=== PATIENT | female | born 2000 | race Caucasian/White ===

== ENCOUNTER 2019-11-12 14:18 | Emergency (ER) | payer OTHER, MEDICAID, SELFPAY ==
[2019-11-12 14:26] VITALS: BP 162/98; PULSE 87; RESP 22; TEMP 36.8; O2SAT 97
--- NOTE | 2019-11-12 15:03 | DI.US.S_ITS ---
PROCEDURE: US PELVIC COMPLETE INDICATIONS: QUESTIONABLE /BLEEDING TECHNIQUE: Real-time scanning was performed of the pelvic organs, with image documentation. Additional endovaginal scanning was necessary due to incomplete visualization of the adnexal and endometrial structures by transabdominal scanning. COMPARISON: [facility], , PELVIC COMPLETE, 02/25/2016, 20:23. FINDINGS: Transabdominal scanning: Limited scanning through the kidneys shows no hydronephrosis. No pathologic free abdominal or pelvic fluid. Endovaginal scanning: Uterus: Uterus is normal in size at 5.7 x 2.5 x 4.7 cm. The endometrium measures 1 mm in combined thickness. Ovaries: Right ovary is normal in size and echotexture measuring 1.7 x 1.0 x 1.0 cm. Left ovary measures 2.9 x 2.6 x 2.3 cm and contains a 2 cm complex cyst. IMPRESSION: 1. No IUP. 2. A 2 cm complex cyst in left ovary, most likely a hemorrhagic ovarian cyst. A short-term followup ultrasound is suggested in 6 weeks. 3. Normal uterus and right ovary. Dictated by: Conchis Spicer M.D. on 11/12/2019 at 17:36 Approved by: Conchis Spicer M.D. on 11/12/2019 at 17:44
[2019-11-12 15:05] LABS: Add Manual Diff / Slide Review NO; Basophils Absolute Auto 0 /uL (0-100); Basophils Percent Auto 0.4 % (0-2); Eosinophils Absolute Auto 200 /uL (0-450); Eosinophils Percent Auto 3.2 % (2-4); Lymphocytes Absolute Auto 1700 /uL (1100-4500); Lymphocytes Percent Auto 25.3 % (25-40); Mean Corpuscular HGB Conc 34.1 % (30-36); Mean Corpuscular Hemoglobin 30.2 PG (26-34); Mean Corpuscular Volume 88.4 fL (80-100); Monocytes Absolute Auto 600 /uL (0-900); Neutrophils Absolute Auto 4400 /uL (1500-7000); Neutrophils Percent Auto 63.1 % (50-75); Platelet Count 169 X10^3/uL (150-400); Red Cell Distribution Width 13.3 % (11.6-14.8); White Blood Cell Count 6.9 X10^3/uL (4.5-11.0)
--- NOTE | 2019-11-12 15:06 | ED_ITS ---
HPI - General Chief complaint: Vaginal Bleeding Stated complaint: Possible , Heavy Bleeding, HX Tubal Preg Time Seen by Provider: 11/12/19 14:51 Source: patient Mode of arrival: Ambulatory History of Present Illness HPI Narrative: CC: Vaginal Bleeding r/o miscarriage. HPI: The patient is a 19-year-old female who was been 1 time before and questionably had a tubal . The patient last menstrual period was October 21. She is trying to get . Yesterday she was spotting and today she developed intense vaginal bleeding. The patient has taken 2 home tests that were lightly and minimally positive. The patient states that she had severe pain and discomfort at the time of her last tubal and she had developed an intense infection with questionable PID. It is unknown whether not the patient had a tubal ovarian abscess. She states that they did not do surgery on her and does not know whether not she was administered methotrexate for her tubal ligation. She currently is on no anticoagulation. She has had no fall no injury. The patient may be . She is currently having no abdominal cramps pain or discomfort just vaginal bleeding. She states that she is not supposed to start her period until November 22. If this is her. It is early. She states that she is normally very regular. She denies a history of diabetes mellitus hypertension asthma congenital heart disease or heart murmur. She admits to smoking cigarettes drinks alcohol but does not use drugs or kenneth chadwick. Related Data Allergies Allergy/AdvReac Type Severity Reaction Status Date / Time cetirizine [From [facility]] Allergy Unknown Unverified 09/07/17 12:24 Review of Systems Review of Systems Narrative: REVIEW OF SYSTEMS: CONSTITUTIONAL: The patient denies any change in weight fever chills or sweats. NEUROLOGICAL: She denies any headache head injury neck pain numbness tingling paresthesias paresis or paresthesias. EENT: She has had no sinus congestion nasal drainage or dysphagia. CARDIO-PULMONARY: She has had no chest pain cough shortness of breath difficulty in breathing. GASTROINTESTINAL: The patient denies any abdominal pain or cramps at this time she has been intensely nauseous but no vomiting no diarrhea. GENITAL URINARY: She denies any urinary symptoms. MUSCULOSKELETAL/ RHEUMATOLOGICAL: No back pain. DERMATOLOGICAL: The patient has multiple tattoos without any bruises or rash Exam Narrative Exam Narrative: PHYSICAL EXAM: CONSTITUTIONAL: Awake, Alert, Oriented, Coherent, Cooperative in NAD. Does not appear toxic or ill. HEAD: AT/NC EENT: PERRL, FROM of eyes, no discharge, no conjunctivitis. NOSE:No epistaxis or nasal drainage MOUTH:Oral mucosa is moist and pink, posterior pharynx is without erythema or exudate. NECK: Supple, no obvious JVD, Trachea is midline without stridor, no palpable LN. SPINE: Palpation of the cervical, Thoracic, Lumbar or Sacral spine reveals no gross deformity or tenderness. No CVA tenderness. THORAX: No deformity, retractions, chest wall tenderness. LUNGS: Clear, symmetrical breath sounds without respiratory distress. HEART: Normal heart tones, regular rhythm and rate without murmur. ABDOMEN: Soft, non-tender, normal bowel sounds without guarding, rebound, rigidity or palpable mass. LYMPHATIC: no palpable lymph nodes or spleen. EXTREMITIES: No edema, deformity, tenderness or cyanosis. SKIN: No rash, bruising, petechiae or purpura. Multiple tattoos over her right arm NEURO: Awake, alert, oriented, conversive, cranial nerves II-XII are symmetrical , moves all 4 extremities and is ambulatory. MENTAL HEALTH: Does not appear anxious or depressed. Initial Vital Signs Initial Vital Signs: Vital Signs Temperature 98.2 F 11/12/19 14:26 Pulse Rate 87 11/12/19 14:26 Respiratory Rate 22 11/12/19 14:26 Blood Pressure 162/98 H 11/12/19 14:26 Pulse Oximetry 97 11/12/19 14:26 Course Course Course Narrative: 1732: The results of the patient's ultrasound of her pelvis remains pending at this time. Her dipstick urine test was negative. Her quantitative beta hCG was less than 2.4. The patient is not . The patient may be having an early menstrual period. The results of her ultrasound remains pending. 1746: Per the infrastructure technician there was no evidence of an intrauterine . The patient will be discharged home. Orders Ordered: ED Orders 11/12/19 14:48 Beta HCG, Quant [HCG Quantitative /Beta subunit] Stat Complete Blood Count AUTO DIFF Stat Comprehensive Metabolic Panel Stat Type and Screen Stat 11/12/19 15:03 US pelvic complete Stat Vital Signs Vital signs: Vital Signs - 8 hr 11/12/19 14:26 Temperature 98.2 F Pulse Rate 87 Respiratory Rate 22 Blood Pressure 162/98 H Pulse Oximetry 97 MDM - OB/Uterine Contractions Lab Data Result diagrams: 11/12/19 14:48 11/12/19 14:48 Labs: Lab Results 11/12/19 11/12/19 11/12/19 Range/Units 14:48 14:48 14:48 WBC 6.9 (4.5-11.0) X10^3/uL RBC 4.30 (4.0-5.2) X10^6/uL Hgb 13.0 (12.0-16.0) g/dL Hct 38.0 (36-46) % MCV 88.4 (80-100) fL MCH 30.2 (26-34) PG MCHC 34.1 (30-36) % RDW 13.3 (11.6-14.8) % Plt Count 169 (150-400) X10^3/uL Neut % (Auto) 63.1 (50-75) % Lymph % (Auto) 25.3 (25-40) % [place] % (Auto) 8.0 (3-14) % Eos % (Auto) 3.2 (2-4) % Baso % (Auto) 0.4 (0-2) % Neut # (Auto) 4400 (1827-0876) /uL Lymph # (Auto) 1700 (4206-6977) /uL [place] # (Auto) 600 (0-900) /uL Eos # (Auto) 200 (0-450) /uL Baso # (Auto) 0 (0-100) /uL Sodium 139 (137-145) mmol/L Potassium 3.5 (3.4-5.1) mmol/L Chloride 103 (98-107) mmol/L Carbon Dioxide 26 (22-32) mmol/L BUN 9 (7-17) mg/dL Creatinine 0.71 (0.52-1.04) mg/dL Estimated GFR > 60.0 (>60) mL/min BUN/Creatinine Ratio 12.7 (6-22) Glucose 91 (70-100) mg/dL Calcium 9.5 (8.4-10.2) mg/dL Total Bilirubin 0.7 (0.2-1.3) mg/dL AST 33 (14-36) IU/L ALT 14 (<35) IU/L Alkaline Phosphatase 64 (38-126) U/L Total Protein 8.0 (6.3-8.2) g/dL Albumin 4.8 (3.5-5.0) g/dL Globulin 3.2 (1.7-4.1) g/dL Albumin/Globulin Ratio 1.5 (1.0-2.8) HCG, Quant mIU/mL Blood Type O Positive Antibody Screen Negative 11/12/19 Range/Units 14:48 WBC (4.5-11.0) X10^3/uL RBC (4.0-5.2) X10^6/uL Hgb (12.0-16.0) g/dL Hct (36-46) % MCV (80-100) fL MCH (26-34) PG MCHC (30-36) % RDW (11.6-14.8) % Plt Count (150-400) X10^3/uL Neut % (Auto) (50-75) % Lymph % (Auto) (25-40) % [place] % (Auto) (3-14) % Eos % (Auto) (2-4) % Baso % (Auto) (0-2) % Neut # (Auto) (8689-9433) /uL Lymph # (Auto) (1335-3715) /uL [place] # (Auto) (0-900) /uL Eos # (Auto) (0-450) /uL Baso # (Auto) (0-100) /uL Sodium (137-145) mmol/L Potassium (3.4-5.1) mmol/L Chloride (98-107) mmol/L Carbon Dioxide (22-32) mmol/L BUN (7-17) mg/dL Creatinine (0.52-1.04) mg/dL Estimated GFR (>60) mL/min BUN/Creatinine Ratio (6-22) Glucose (70-100) mg/dL Calcium (8.4-10.2) mg/dL Total Bilirubin (0.2-1.3) mg/dL AST (14-36) IU/L ALT (<35) IU/L Alkaline Phosphatase (38-126) U/L Total Protein (6.3-8.2) g/dL Albumin (3.5-5.0) g/dL Globulin (1.7-4.1) g/dL Albumin/Globulin Ratio (1.0-2.8) HCG, Quant < 2.4 mIU/mL Blood Type Antibody Screen Point of Care Testing Test Results Negative Urine Dip Bedside Urine Glucose Negative Bedside Urine Bilirubin - Negative Bedside Urine Ketone - Negative Urine Specific [place] 1.010 Bedside Urine Occult Blood +++ Bedside Urine pH 7.0 Bedside Urine Protein - Negative Bedside Urine Urobilinogen - Negative Bedside Urine Nitrite - Negative Bedside Urine Leukocytes - Negative Esterase Discharge Plan Departure Patient Disposition: Home Clinical Impression: Vaginal bleeding Discharge Date/Time: 11/12/19 17:57 Instructions: DI for Vaginal Bleeding, DI for Abnormal Uterine Bleeding Activity Restrictions/Additional Instructions: 1. Follow-up with your primary care physician. 2. For any pain and discomfort you can take Tylenol 500 mg every 4 hours or 1 g every 6 hours. You can also use ibuprofen 3 200 mg tablets every 6 hours as needed for pain and discomfort. Take either the Tylenol or ibuprofen but not both of them together. 3. Your ultrasound reveals that there is no intrauterine or evidence of ectopic. 4. Your test was negative and your beta hCG was also negative for . 5. If you develop worsening pain, worsening bleeding, fever you need to return to the emergency department to be re-evaluated or follow-up with your fish culturist/ primary care physician.
[2019-11-12 15:09] LABS: Alanine Aminotransferase 14 IU/L (<35); Albumin 4.8 g/dL (3.5-5.0); Albumin Globulin Ratio 1.5 (1.0-2.8); Alkaline Phosphatase 64 U/L (38-126); Aspartate Aminotransferase 33 IU/L (14-36); BUN Creatinine Ratio 12.7 (6-22); Bilirubin Total 0.7 mg/dL (0.2-1.3); Blood Urea Nitrogen 9 mg/dL (7-17); Calcium 9.5 mg/dL (8.4-10.2); Carbon Dioxide 26 mmol/L (22-32); Chloride 103 mmol/L (98-107); Estimated Glomerular Filt Rate > 60.0 mL/min (>60); Globulin 3.2 g/dL (1.7-4.1); Glucose 91 mg/dL (70-100); HEMOLYSIS < 15 (0-50); Potassium 3.5 mmol/L (3.4-5.1); Sodium 139 mmol/L (137-145)
[2019-11-12 16:44] LABS: HCG Quantitative /Beta subunit < 2.4 mIU/mL
[2019-11-12 17:56] VITALS: BP 108/55; PULSE 68; RESP 16; O2SAT 97
== END 2019-11-12 17:57 | disposition home or self-care (01) ==
PROVIDERS: Emergency Provider Emergency Medicine; Family Provider Pediatrics
DX: N93.9 Abnormal uterine and vaginal bleeding, unspecified (principal)
CPT/HCPCS: 36415; 76830; 76856; 80053; 81003; 81025; 84702; 85025; 86850; 86900; 86901; 99284

== ENCOUNTER 2021-11-04 14:01 | Emergency (ER) | payer OTHER, MEDICAID, SELFPAY ==
[2021-11-04 14:07] VITALS: BP 131/76; PULSE 75; RESP 18; TEMP 37.5; O2SAT 96
[2021-11-04 14:35] LABS: Add Manual Diff / Slide Review NO; Basophils Absolute Auto 0 /uL (0-100); Basophils Percent Auto 0.1 % (0-2); Eosinophils Absolute Auto 100 /uL (0-450); Eosinophils Percent Auto 0.9 % (2-4); Hematocrit 36.3 % (36-46); Hemoglobin 12.1 g/dL (12.0-16.0); Lymphocytes Absolute Auto 1600 /uL (1100-4500); Mean Corpuscular HGB Conc 33.4 % (30-36); Mean Corpuscular Hemoglobin 28.3 PG (26-34); Mean Corpuscular Volume 84.7 fL (80-100); Monocytes Absolute Auto 1000 /uL (0-900); Monocytes Percent Auto 8.4 % (3-14); Neutrophils Absolute Auto 8900 /uL (1500-7000); Neutrophils Percent Auto 76.6 % (50-75); Platelet Count 186 X10^3/uL (150-400); Red Blood Cell Count 4.28 X10^6/uL (4.0-5.2); Red Cell Distribution Width 13.6 % (11.6-14.8); White Blood Cell Count 11.6 X10^3/uL (4.5-11.0)
[2021-11-04 14:50] LABS: Alanine Aminotransferase 30 IU/L (<35); Albumin 4.7 g/dL (3.5-5.0); Albumin Globulin Ratio 1.4 (1.0-2.8); Alkaline Phosphatase 96 U/L (38-126); Aspartate Aminotransferase 31 IU/L (14-36); Bilirubin Total 1.2 mg/dL (0.2-1.3); Blood Urea Nitrogen 10 mg/dL (7-17); Carbon Dioxide 26 mmol/L (22-32); Chloride 104 mmol/L (98-107); Estimated Glomerular Filt Rate > 60 mL/min (>60); Globulin 3.4 g/dL (1.7-4.1); Glucose 92 mg/dL (70-100); HEMOLYSIS < 15 (0-50); Lipase 70 U/L (23-300); Potassium 3.9 mmol/L (3.4-5.1); Sodium 139 mmol/L (137-145); Total Protein 8.1 g/dL (6.3-8.2)
--- NOTE | 2021-11-04 14:54 | DI.US.S_ITS ---
PROCEDURE: US ABDOMEN LIMITED INDICATIONS: RUQ pain w/nausea, anorexia gallstones/cholecystitis? TECHNIQUE: Real-time focused scanning was performed of the abdomen, with image documentation. COMPARISON: None. FINDINGS: The liver is normal in size and demonstrates no focal lesions. No findings of gallstones or sludge are seen. The gallbladder wall is not thickened, measuring 3 mm or less. No specific pericholecystic fluid is seen. The sonographic Mcghee sign is negative. There is no biliary dilatation, the common bile duct measures 3-4 mm. No significant pancreatic abnormality is seen on these images. IMPRESSION: The gallbladder demonstrates a normal sonographic appearance. No biliary dilatation is seen. Dictated by: Tereso Curtis M.D. on 11/04/2021 at 14:35 Approved by: Tereso Curtis M.D. on 11/04/2021 at 14:36
[2021-11-04 15:16] LABS: Appearance Urine UA CLEAR; Bilirubin Urine UA NEGATIVE (NEGATIVE); Color Urine UA YELLOW; Glucose Urine UA TRACE g/dL (Negative); Ketones Urine UA NEGATIVE (NEGATIVE); Leukocyte Esterase Urine UA NEGATIVE (NEGATIVE); Nitrite Urine UA NEGATIVE (Negative); Occult Blood Urine UA TRACE-INTACT (Negative); Protein Urine UA NEGATIVE (Negative); Urobilinogen Urine UA 0.2 E.U./dL (0.2)
--- NOTE | 2021-11-04 15:16 | ED.ABDPAIN ---
HPI - Abdominal Pain General Chief Complaint: Abdominal Pain Stated Complaint: RIGHT UPPER PAIN NAUSEA BODY ACHES Time Seen by Provider: 11/04/21 14:37 Source: patient Mode of arrival: Ambulatory History of Present Illness HPI narrative: This is a 21-year-old female who is 13 weeks who presents to the emergency department with two weeks of intermittent right upper quadrant pain, poor appetite, nausea, and worsened pain after eating. Patient denies any abdominal surgeries, states that she has had worsened pain after fatty meals and after coffee. She denies any heartburn, endorses soft stools but denies any blood in her urine or her stools, denies dysuria or flank pain, denies any other abdominal pain. Related Data Allergies Allergy/AdvReac Type Severity Reaction Status Date / Time cetirizine [From [facility]] Allergy Unknown Unverified 09/07/17 12:24 Review of Systems Review of Systems Narrative: General: denies fever, chills, malaise, sweats, fatigue Head/Neck: denies headache, neck pain, dizziness, denies a sore throat but states has a scratchy throat Eyes: denies visual changes, eye pain Cardio: denies chest pain, palpitations, edema Respiratory: denies dyspnea, cough, orthopnea GI: Endorses right upper quadrant abdominal pain with nausea, denies any vomiting, or diarrhea, endorses intermittent constipation : denies dysuria, hematuria, urinary retention, frequency or incontinence MSK: denies joint pain, muscle weakness Skin: denies rash, itching, skin lesions or other Neuro: denies numbness, tingling Exam Narrative Exam Narrative: Independently reviewed vitals signs and nursing notes. General: cooperative, comfortable, in no acute distress, well groomed Head: atraumatic, symmetrical facial expressions Neck: supple Eyes: equal round and reactive, EOMI, conjunctiva normal Nose: nares patent, no rhinorrhea Mouth/Throat: moist mucus membranes, posterior pharynx with mild erythema, no tonsillar exudate or white patchy lesions Cardiovascular: regular rate and rhythm, no peripheral edema, warm extremities Respiratory: normal effort, able to speak in complete sentences, no audible wheezing, stridor, or rales. No retractions or tachypnea. GI: abdomen soft, nontender to palpation, nondistended, no masses, no exquisite tenderness with exam, without guarding or rebound. MSK: moves all extremities, neurovascularly intact, no weakness, normal tone Skin: brisk capillary refill, no rash, no erythema Neuro: normal speech and cognition, A&O x3 Psych: mental status is grossly normal, congruent mood, normal affect, pleasant and cooperative Initial Vital Signs Initial Vital Signs: Vital Signs Temperature 99.5 F 11/04/21 14:07 Pulse Rate 75 11/04/21 14:07 Respiratory Rate 18 11/04/21 14:07 Blood Pressure 131/76 11/04/21 14:07 Pulse Oximetry 96 11/04/21 14:07 Oxygen Delivery Method 11/04/21 14:07 Course Orders Ordered: Discontinued Medications Ketorolac Tromethamine (Ketorolac 30 Mg/Ml Vial) 15 mg IV NOW ONE Stop: 11/04/21 15:18 Last Admin: 11/04/21 16:20 Dose: 15 mg Documented By: MARCK Ondansetron HCl (Ondansetron 4 Mg/2 Ml Inj) 4 mg IV NOW ONE Stop: 11/04/21 15:17 Last Admin: 11/04/21 16:19 Dose: 4 mg Documented By: MARCK Vital Signs Vital signs: Vital Signs - 8 hr 11/04/21 14:07 Temperature 99.5 F Pulse Rate 75 Respiratory Rate 18 Blood Pressure 131/76 Pulse Oximetry 96 MDM - Abdominal Pain Lab Data Result diagrams: 11/04/21 14:20 11/04/21 14:20 Labs: Lab Results 11/04/21 11/04/21 11/04/21 Range/Units 14:20 14:20 15:12 WBC 11.6 H (4.5-11.0) X10^3/uL RBC 4.28 (4.0-5.2) X10^6/uL Hgb 12.1 (12.0-16.0) g/dL Hct 36.3 (36-46) % MCV 84.7 (80-100) fL MCH 28.3 (26-34) PG MCHC 33.4 (30-36) % RDW 13.6 (11.6-14.8) % Plt Count 186 (150-400) X10^3/uL Neut % (Auto) 76.6 H (50-75) % Lymph % (Auto) 14.0 L (25-40) % [place] % (Auto) 8.4 (3-14) % Eos % (Auto) 0.9 L (2-4) % Baso % (Auto) 0.1 (0-2) % Neut # (Auto) 8900 H (5013-2902) /uL Lymph # (Auto) 1600 (5285-3544) /uL [place] # (Auto) 1000 H (0-900) /uL Eos # (Auto) 100 (0-450) /uL Baso # (Auto) 0 (0-100) /uL Sodium 139 (137-145) mmol/L Potassium 3.9 (3.4-5.1) mmol/L Chloride 104 (98-107) mmol/L Carbon Dioxide 26 (22-32) mmol/L BUN 10 (7-17) mg/dL Creatinine 0.77 (0.52-1.04) mg/dL Estimated GFR > 60 (>60) mL/min BUN/Creatinine Ratio 13.0 (6-22) Glucose 92 (70-100) mg/dL Calcium 9.0 (8.4-10.2) mg/dL Total Bilirubin 1.2 (0.2-1.3) mg/dL AST 31 (14-36) IU/L ALT 30 (<35) IU/L Alkaline Phosphatase 96 (38-126) U/L Total Protein 8.1 (6.3-8.2) g/dL Albumin 4.7 (3.5-5.0) g/dL Globulin 3.4 (1.7-4.1) g/dL Albumin/Globulin Ratio 1.4 (1.0-2.8) Lipase 70 (23-300) U/L Urine Color Yellow Urine Appearance Clear Urine pH 7.5 (4.5-8.0) Ur Specific [place] 1.010 (1.000-1.035) Urine Protein Negative (Negative) Urine Glucose (UA) Trace H (Negative) g/dL Urine Ketones Negative (NEGATIVE) Urine Occult Blood Trace-intact (Negative) Urine Nitrate Negative (Negative) Urine Bilirubin Negative (NEGATIVE) Urine Urobilinogen 0.2 (0.2) E.U./dL Ur Leukocyte Esterase Negative (NEGATIVE) Urine RBC 1-5/hpf (0-5/HPF) Urine WBC None seen (0-5/HPF) Ur Squamous Epith Cells 5-10 /hpf H (0-5/HPF) Amorphous Sediment 1+ Urine Bacteria None seen (None) Ur Culture Indicated? Cult not indicated Chlamy pneumoniae PCR (Not Detect) Adenovirus (PCR) (Not Detect) B. pertussis DNA (PCR) (Not Detecte) B.parapertussis DNA PCR (Not Detecte) Coronavirus OC43 (PCR) (Not Detect) Coronavirus HKU1 (PCR) (Not Detect) Coronavirus 229E (PCR) (Not Detect) SARS-CoV-2 (PCR) (Not Detecte) Coronavirus NL63 (PCR) (Not Detect) Human Metapneumovir PCR (Not Detect) Influenza Type A (PCR) (Not Detect) Influenza Type B (PCR) (Not Detect) M. pneumoniae (PCR) (Not Detect) Parainfluenza 1 (PCR) (Not Detect) Parainfluenza 2 (PCR) (Not Detect) Parainfluenza 3 (PCR) (Not Detect) Parainfluenza 4 (PCR) (Not Detect) RSV (PCR) (Not Detect) Entero/Rhino (PCR) (Not Detect) 11/04/21 Range/Units 16:10 WBC (4.5-11.0) X10^3/uL RBC (4.0-5.2) X10^6/uL Hgb (12.0-16.0) g/dL Hct (36-46) % MCV (80-100) fL MCH (26-34) PG MCHC (30-36) % RDW (11.6-14.8) % Plt Count (150-400) X10^3/uL Neut % (Auto) (50-75) % Lymph % (Auto) (25-40) % [place] % (Auto) (3-14) % Eos % (Auto) (2-4) % Baso % (Auto) (0-2) % Neut # (Auto) (1544-9468) /uL Lymph # (Auto) (1266-2397) /uL [place] # (Auto) (0-900) /uL Eos # (Auto) (0-450) /uL Baso # (Auto) (0-100) /uL Sodium (137-145) mmol/L Potassium (3.4-5.1) mmol/L Chloride (98-107) mmol/L Carbon Dioxide (22-32) mmol/L BUN (7-17) mg/dL Creatinine (0.52-1.04) mg/dL Estimated GFR (>60) mL/min BUN/Creatinine Ratio (6-22) Glucose (70-100) mg/dL Calcium (8.4-10.2) mg/dL Total Bilirubin (0.2-1.3) mg/dL AST (14-36) IU/L ALT (<35) IU/L Alkaline Phosphatase (38-126) U/L Total Protein (6.3-8.2) g/dL Albumin (3.5-5.0) g/dL Globulin (1.7-4.1) g/dL Albumin/Globulin Ratio (1.0-2.8) Lipase (23-300) U/L Urine Color Urine Appearance Urine pH (4.5-8.0) Ur Specific [place] (1.000-1.035) Urine Protein (Negative) Urine Glucose (UA) (Negative) g/dL Urine Ketones (NEGATIVE) Urine Occult Blood (Negative) Urine Nitrate (Negative) Urine Bilirubin (NEGATIVE) Urine Urobilinogen (0.2) E.U./dL Ur Leukocyte Esterase (NEGATIVE) Urine RBC (0-5/HPF) Urine WBC (0-5/HPF) Ur Squamous Epith Cells (0-5/HPF) Amorphous Sediment Urine Bacteria (None) Ur Culture Indicated? Chlamy pneumoniae PCR Not detected (Not Detect) Adenovirus (PCR) Not detected (Not Detect) B. pertussis DNA (PCR) Not detected (Not Detecte) B.parapertussis DNA PCR Not detected (Not Detecte) Coronavirus OC43 (PCR) Not detected (Not Detect) Coronavirus HKU1 (PCR) Not detected (Not Detect) Coronavirus 229E (PCR) Not detected (Not Detect) SARS-CoV-2 (PCR) Not detected (Not Detecte) Coronavirus NL63 (PCR) Not detected (Not Detect) Human Metapneumovir PCR Not detected (Not Detect) Influenza Type A (PCR) Not detected (Not Detect) Influenza Type B (PCR) Not detected (Not Detect) M. pneumoniae (PCR) Not detected (Not Detect) Parainfluenza 1 (PCR) Not detected (Not Detect) Parainfluenza 2 (PCR) Not detected (Not Detect) Parainfluenza 3 (PCR) Not detected (Not Detect) Parainfluenza 4 (PCR) Not detected (Not Detect) RSV (PCR) Not detected (Not Detect) Entero/Rhino (PCR) Not detected (Not Detect) Point of care testing: Point of Care Testing Test Results Negative Urine Dip Bedside Urine Glucose Negative Bedside Urine Bilirubin - Negative Bedside Urine Ketone - Negative Urine Specific [place] 1.010 Bedside Urine Occult Blood +/- Bedside Urine pH 7.0 Bedside Urine Protein - Negative Bedside Urine Urobilinogen +/- 1mg Bedside Urine Nitrite - Negative Bedside Urine Leukocytes - Negative Esterase Imaging Data CT scan - abdomen/pelvis: Radiologist's Impression: PROCEDURE: US ABDOMEN LIMITED ? INDICATIONS:? RUQ pain w/nausea, anorexia gallstones/cholecystitis? ? TECHNIQUE:? Real-time focused scanning was performed of the abdomen, with image documentation.? ? COMPARISON:? None. ? FINDINGS:? The liver is normal in size and demonstrates no focal lesions. ? No findings of gallstones or sludge are seen.? The gallbladder wall is not thickened, measuring 3 mm or less.? No specific pericholecystic fluid is seen.? The sonographic Mcghee sign is negative. ? There is no biliary dilatation, the common bile duct measures 3-4 mm.? ? No significant pancreatic abnormality is seen on these images.? IMPRESSION:? The gallbladder demonstrates a normal sonographic appearance. No biliary dilatation is seen. ? ? Dictated by: Tereso Curtis M.D. on 11/04/2021 at 14:35 ? ? Approved by: Tereso Curtis M.D. on 11/04/2021 at 14:36 ? [facility] Narrative Medical decision making narrative: This is a 21-year-old female presents to the emergency department with two weeks of intermittent right upper quadrant pain which she states is worse after she eats, especially after fatty meals, accompanied by nausea, denies any other pain. She is 11 , denies any of these pains during her . Today, she was tender on exam but ultrasound of her right upper quadrant shows normal sonographic appearance of the gallbladder, no biliary dilation is seen, no findings of gallstones or sludge without any pericholecystic fluid. The sonographic Mcghee sign was negative, her lab work does not show any elevation in liver enzymes, her lab work is significant for a mildly elevated WBC count at 11.6, no left shift, electrolytes are within normal ranges, UA shows a trace of blood with a trace of glucose however microscopy shows squamous epithelial cells likely contaminant. Respiratory panel is negative for all tested viruses. This was obtained as patient had a mildly irritated throat, states that her voice sounds hoarse and she has a scratchy throat. Denies any sick contacts at home, discussed return precautions for patient, this is not seem to be an acute abdomen, she did not have any significant findings on her workup today. No peritoneal signs on abdominal exam. Patient remains p.o. tolerant. Serial abdominal exam without increase in abdominal pain. Given history and exam, low suspicion for acute abdominal process, such as acute cholecystitis, pancreatitis, perforated viscus, atypical appendicitis, colitis, diverticulitis or torsion. Extensive conversation about ER return precautions and need for close follow-up. Encourage patient to schedule a follow-up appointment with her primary care provider to allow this time to declare itself. Patient understands to return to the emergency department for any worsening of her symptoms. Patient is appropriate and amenable to discharge home. Vital signs are stable on repeat examination is unremarkable. Patient has been informed of results. Patient has been given strict return to ER precautions for any new or worsening symptoms. Patient understands to follow up closely with outpatient providers as instructed. Patient understands plan and agrees to discharge home. All questions and concerns answered at this time. Discharge Plan Departure Patient Disposition: Home Clinical Impression: Viral respiratory illness, Abdominal pain, RUQ Instructions: Acute Abdominal Pain, DI for Viral Upper Respiratory Infection -- Adult Activity Restrictions/Additional Instructions: On ultrasound today, does not appear that you have any problems with her gallbladder, there stones or inflammation of the gallbladder wall. This is great news. Your lab work suggest that you might have the beginnings of bacterial or viral illness. Because your throat is scratchy in your voice is slightly changed, I presume this is respiratory viral illness, and that is probably causing your muscle aches. I will give you a call if it is positive for any of the tested viruses. Please stay hydrated, avoid ibuprofen, try Tylenol as it is easier on her stomach and try to avoid going long periods of time without food as this may worsen your abdominal pain. Please follow-up with your primary care provider if your viral panel does not show anything and if your pain persists. Thank you for trusting us with your care, your urine did not show any infection, the rest of your labs appeared normal. I hope you feel better soon. *What to do: *Please continue to take your regular medications as directed. [ ] New medication prescriptions sent to your pharmacy: [ ] [ ] New medication written as a paper prescription [ x] No new medications given *Please follow up with your primary care provider in 2-3 days, call for an appointment. Let them know you were seen in the Emergency Department and that we asked that you be seen for follow-up. We will electronically transmit a record of today's note if your PCP is in our system *If you do not have a primary care provider please contact [phone] to establish care with one of the [facility] primary care providers. *Return to Emergency Department if you should have any new, worsening or concerning symptoms, such as [fever greater than 101F, chills, worsening pain, persistent vomiting or other bothersome symptoms] Referrals: Lana Crooks FNP-C [Non-Staff] - Visit Report Forms: Patient Portal/API
[2021-11-04 15:34] LABS: pH Urine UA 7.5 (4.5-8.0)
[2021-11-04 15:43] LABS: Amorphous Sediment Urine 1+; RBC Urine 1-5/HPF (0-5/HPF); Squamous Epithelial Cell Urine 5-10 /HPF (0-5/HPF); WBC Urine None Seen (0-5/HPF)
[2021-11-04 15:44] LABS: Bacteria Urine None Seen; Culture Indicated Urine Cult Not Indicated
[2021-11-04] MEDS: ONDANSETRON 4 MG/2 ML INJ IV (16:19)
[2021-11-04] MEDS: KETOROLAC 30 MG/ML VIAL 15 MG IV (16:20)
[2021-11-04 17:17] LABS: Adenovirus Not Detected (Not Detect); B. parapertussis Not Detected (Not Detecte); Bordetella pertussis Not Detected (Not Detecte); Chlamydophila pneumoniae Not Detected (Not Detect); Coronavirus 229E Not Detected (Not Detect); Coronavirus HKU1 Not Detected (Not Detect); Coronavirus NL 63 Not Detected (Not Detect); Coronavirus OC43 Not Detected (Not Detect); Human Metapneumovirus Not Detected (Not Detect); Human Rhinovirus/Enterovirus Not Detected (Not Detect); Influenza A Not Detected (Not Detect); Influenza B Not Detected (Not Detect); Mycoplasma pneumoniae Not Detected (Not Detect); Parainfluenza Virus 1 Not Detected (Not Detect); Parainfluenza Virus 2 Not Detected (Not Detect); Parainfluenza Virus 3 Not Detected (Not Detect); Parainfluenza Virus 4 Not Detected (Not Detect); Respiratory Syncytial Virus Not Detected (Not Detect); SARS- CoV-2 Not Detected (Not Detecte)
== END 2021-11-04 16:37 | disposition home or self-care (01) ==
PROVIDERS: Emergency Medicine; Emergency Provider Nurse Practitioner Critical Care Medicine; Family Provider Pediatrics
DX: J06.9 Acute upper respiratory infection, unspecified (principal); R11.0 Nausea; R10.11 Right upper quadrant pain; Z20.822 Contact with and (suspected) exposure to COVID-19
CPT/HCPCS: 36415; 76705; 80053; 81001; 81003; 81025; 83690; 85025; 87633; 96374; 96375; 99284; J1885; J2405

== ENCOUNTER 2022-04-22 20:01 | Emergency (ER) | payer OTHER, MEDICAID, SELFPAY ==
[2022-04-22 20:10] VITALS: BP 139/86; PULSE 100; RESP 20; TEMP 38; O2SAT 100; BMI 28.0
[2022-04-22 20:30] LABS: Add Manual Diff / Slide Review NO; Basophils Absolute Auto 0 /uL (0-100); Basophils Percent Auto 0.3 % (0-2); Eosinophils Absolute Auto 0 /uL (0-450); Eosinophils Percent Auto 0.6 % (2-4); Hematocrit 36.3 % (36-46); Hemoglobin 12.2 g/dL (12.0-16.0); Lymphocytes Absolute Auto 1100 /uL (1100-4500); Lymphocytes Percent Auto 16.4 % (25-40); Mean Corpuscular HGB Conc 33.6 % (30-36); Mean Corpuscular Hemoglobin 28.8 PG (26-34); Mean Corpuscular Volume 85.8 fL (80-100); Monocytes Absolute Auto 900 /uL (0-900); Monocytes Percent Auto 14.2 % (3-14); Neutrophils Absolute Auto 4500 /uL (1500-7000); Neutrophils Percent Auto 68.5 % (50-75); Platelet Count 127 X10^3/uL (150-400); Red Blood Cell Count 4.22 X10^6/uL (4.0-5.2); Red Cell Distribution Width 13.3 % (11.6-14.8); White Blood Cell Count 6.6 X10^3/uL (4.5-11.0)
[2022-04-22 20:43] LABS: BUN Creatinine Ratio 11.1 (6-22); Blood Urea Nitrogen 8 mg/dL (7-17); Calcium 8.8 mg/dL (8.4-10.2); Carbon Dioxide 25 mmol/L (22-32); Chloride 104 mmol/L (98-107); Estimated Glomerular Filt Rate > 60 mL/min (>60); Glucose 99 mg/dL (70-100); HEMOLYSIS < 15 (0-50); Potassium 3.4 mmol/L (3.4-5.1); Sodium 142 mmol/L (137-145)
[2022-04-22 21:18] LABS: Bacteria Urine Occasional (0-1); RBC Urine 0-1/HPF (0-5/HPF); Squamous Epithelial Cell Urine 1-5 /HPF (0-5/HPF); WBC Urine 1-5/HPF (0-5/HPF)
[2022-04-22 21:28] LABS: Influenza A - CEPHEID Flu A NEGATIVE (NEGATIVE); Influenza B - CEPHEID Flu B NEGATIVE (NEGATIVE); Respiratory Syncytial Virus Negative (Negative)
[2022-04-22 21:30] LABS: COVID-19 CEPHEID 4-PLEX PCR Negative (Negative)
[2022-04-22 22:49] LABS: Monotest Negative (Negative)
[2022-04-22] MEDS: POLYMY B/TRIMETH OPHTH PREPACK 1 BOTTLE MISC (22:50)
--- NOTE | 2022-04-22 23:15 | ED.GENADULT ---
HPI - General Adult General Chief complaint: Abdominal Pain Stated complaint: Fever 104, Sick, ABD pain Time Seen by Provider: 04/22/22 20:05 Source: patient Mode of arrival: Ambulatory History of Present Illness HPI narrative: 21-year-old female nonsmoker with noncontributory medical history presents with her young child in the chief complaint multiple symptoms including mild headache, ear pain, sore throat, dry hacking cough along with fever and chills for the past few days. She has multiple family members with influenza and though she has tested negative a few times she is concerned. She denies chest pain or shortness of breath. She has had episodic and crampy abdominal pain with a few loose stools. She denies dysuria, frequency or urgency. She denies vaginal bleeding or discharge Related Data Allergies Allergy/AdvReac Type Severity Reaction Status Date / Time cetirizine [From [facility]] Allergy Mild Verified 04/22/22 20:37 Review of Systems Review of Systems Narrative: GENERAL: See HPI HEENT: See HPI RESPIRATORY: See HPI CARDIOVASCULAR: Denies chest pain, palpitations, orthopnea, edema, GASTROINTESTINAL: Denies nausea, vomiting, abdominal pain, diarrhea, constipation, melena. : Denies dysuria, frequency, incontinence, hematuria, urinary retention. MUSCULOSKELETAL: denies weakness, joint pain, or bony pain SKIN: Denies rash, skin lesions, or other NEUROLOGIC: Denies weakness, headache, numbness, change in speech, confusion, seizures, incoordination. PSYCHIATRIC: No concerning psychosocial issues. 12 point review of systems is negative except for those stated above Patient History Social History Smoking Status: Current every day smoker Smoking Status: Current every day smoker tobacco type: vaping alcohol intake frequency: holidays/special occasions only Substance Use Type: marijuana Exam Narrative Exam Narrative: GENERAL: [21] year old patient appears stated age. Well-developed patient, in mild distress. HEAD: Atraumatic. Normocephalic. EYES: Pupils equal round and reactive. Extraocular motions intact. No scleral icterus. Minimal right eye injection ENT: Nose without bleeding, purulent drainage. Throat without erythema, tonsillar hypertrophy or exudate. Airway patent. NECK: Trachea midline. Non tender CARDIOVASCULAR: Regular rate and rhythm without murmurs, gallops, or rubs. RESPIRATORY: Clear to auscultation. Breath sounds equal bilaterally. No wheezes, rales, or rhonchi. GASTROINTESTINAL: Abdomen soft, non-tender, nondistended. EXTREMITIES: No edema or joint tenderness. BACK: Nontender without deformity or crepitance. No flank tenderness. NEURO: AOx3. SKIN: No rash or erythema of visible areas Initial Vital Signs Initial Vital Signs: Vital Signs Temperature 100.4 F H 04/22/22 20:10 Pulse Rate 100 H 04/22/22 20:10 Respiratory Rate 20 04/22/22 20:10 Blood Pressure 139/86 04/22/22 20:10 Pulse Oximetry 100 04/22/22 20:10 Oxygen Delivery Method 04/22/22 20:10 Course Orders Ordered: ED Orders 04/22/22 21:05 Urine Culture Stat Urine Microscopic Stat 04/22/22 21:40 Throat Culture Stat Discontinued Medications Polymyxin/Trimethoprim Sulfate (Polymy B/Trimeth Ophth Prepack) 1 bottle MISC SEEINSTR ONE Stop: 04/22/22 22:37 Last Admin: 04/22/22 22:50 Dose: 1 drop Documented By: NICHOLAS Vital Signs Vital signs: Vital Signs - 8 hr 04/22/22 23:21 Temperature 99.0 F Pulse Rate 90 Respiratory Rate 17 Blood Pressure 100/67 Pulse Oximetry 99 Oxygen Delivery Method Room Air Medical Decision Making Lab Data Result diagrams: 04/22/22 20:17 04/22/22 20:17 Labs: Lab Results 04/22/22 04/22/22 04/22/22 Range/Units 20:17 20:17 20:17 WBC 6.6 (4.5-11.0) X10^3/uL RBC 4.22 (4.0-5.2) X10^6/uL Hgb 12.2 (12.0-16.0) g/dL Hct 36.3 (36-46) % MCV 85.8 (80-100) fL MCH 28.8 (26-34) PG MCHC 33.6 (30-36) % RDW 13.3 (11.6-14.8) % Plt Count 127 L (150-400) X10^3/uL Neut % (Auto) 68.5 (50-75) % Lymph % (Auto) 16.4 L (25-40) % [place] % (Auto) 14.2 H (3-14) % Eos % (Auto) 0.6 L (2-4) % Baso % (Auto) 0.3 (0-2) % Neut # (Auto) 4500 (7207-8580) /uL Lymph # (Auto) 1100 (3886-1504) /uL [place] # (Auto) 900 (0-900) /uL Eos # (Auto) 0 (0-450) /uL Baso # (Auto) 0 (0-100) /uL Sodium 142 (137-145) mmol/L Potassium 3.4 (3.4-5.1) mmol/L Chloride 104 (98-107) mmol/L Carbon Dioxide 25 (22-32) mmol/L BUN 8 (7-17) mg/dL Creatinine 0.72 (0.52-1.04) mg/dL Estimated GFR > 60 (>60) mL/min BUN/Creatinine Ratio 11.1 (6-22) Glucose 99 (70-100) mg/dL Calcium 8.8 (8.4-10.2) mg/dL Urine RBC (0-5/HPF) Urine WBC (0-5/HPF) Ur Squamous Epith Cells (0-5/HPF) Urine Bacteria (None) SARS-CoV-2 (PCR) (Negative) Monoscreen Negative (Negative) Influenza A (RT-PCR) (NEGATIVE) Influenza B (RT-PCR) (NEGATIVE) RSV (PCR) (Negative) 04/22/22 04/22/22 Range/Units 20:18 21:05 WBC (4.5-11.0) X10^3/uL RBC (4.0-5.2) X10^6/uL Hgb (12.0-16.0) g/dL Hct (36-46) % MCV (80-100) fL MCH (26-34) PG MCHC (30-36) % RDW (11.6-14.8) % Plt Count (150-400) X10^3/uL Neut % (Auto) (50-75) % Lymph % (Auto) (25-40) % [place] % (Auto) (3-14) % Eos % (Auto) (2-4) % Baso % (Auto) (0-2) % Neut # (Auto) (4463-2054) /uL Lymph # (Auto) (8494-7665) /uL [place] # (Auto) (0-900) /uL Eos # (Auto) (0-450) /uL Baso # (Auto) (0-100) /uL Sodium (137-145) mmol/L Potassium (3.4-5.1) mmol/L Chloride (98-107) mmol/L Carbon Dioxide (22-32) mmol/L BUN (7-17) mg/dL Creatinine (0.52-1.04) mg/dL Estimated GFR (>60) mL/min BUN/Creatinine Ratio (6-22) Glucose (70-100) mg/dL Calcium (8.4-10.2) mg/dL Urine RBC 0-1/hpf (0-5/HPF) Urine WBC 1-5/hpf (0-5/HPF) Ur Squamous Epith Cells 1-5 /hpf (0-5/HPF) Urine Bacteria Occasional (0-1) (None) SARS-CoV-2 (PCR) Negative (Negative) Monoscreen (Negative) Influenza A (RT-PCR) Flu a negative (NEGATIVE) Influenza B (RT-PCR) Flu b negative (NEGATIVE) RSV (PCR) Negative (Negative) Point of Care Testing Test Results Negative Rapid Strep A Negative Urine Dip Bedside Urine Glucose Negative Bedside Urine Bilirubin - Negative Bedside Urine Ketone - Negative Urine Specific [place] 1.03 Bedside Urine Occult Blood - Negative Bedside Urine pH 6 Bedside Urine Protein +/- 15 Bedside Urine Urobilinogen - Negative Bedside Urine Nitrite - Negative Bedside Urine Leukocytes - Negative Esterase Point of care testing: Point of Care Testing Test Results Negative Rapid Strep A Negative Urine Dip Bedside Urine Glucose Negative Bedside Urine Bilirubin - Negative Bedside Urine Ketone - Negative Urine Specific [place] 1.03 Bedside Urine Occult Blood - Negative Bedside Urine pH 6 Bedside Urine Protein +/- 15 Bedside Urine Urobilinogen - Negative Bedside Urine Nitrite - Negative Bedside Urine Leukocytes - Negative Esterase Discharge Plan Departure Patient Disposition: Home Clinical Impression: Acute viral syndrome, Conjunctivitis Activity Restrictions/Additional Instructions: *You have been diagnosed with [viral syndrome] *What to do: *Please continue to take your regular medications as directed. *Please follow up with your primary care provider in 2-3 days, call for an appointment. Let them know you were seen in the Emergency Department and that we ask that you be seen in follow up. We will electronically transmit a record of today's note if your PCP is in our system *If you do not have a primary care provider please contact the [facility] Resource line at [phone]. They will ask some questions about your medical history and help get you set up with a doctor in the community. *Return to Emergency Department if you should have any new, worsening or concerning symptoms, such as [fever greater than 101 F, shaking chills, worsening pain, persistent vomiting or other bothersome symptoms] Visit Report Forms: Patient Portal/API
[2022-04-22 23:21] VITALS: BP 100/67; PULSE 90; RESP 17; TEMP 37.2; O2SAT 99
== END 2022-04-23 00:15 | disposition home or self-care (01) ==
PROVIDERS: Emergency Provider Emergency Medicine; Family Provider Pediatrics
DX: B34.9 Viral infection, unspecified (principal); H10.9 Unspecified conjunctivitis; Z20.822 Contact with and (suspected) exposure to COVID-19
CPT/HCPCS: 0241U; 80048; 81003; 81015; 81025; 85025; 86318; 87070; 87086; 87880; 99283

== ENCOUNTER 2024-12-06 19:39 | Emergency (ER) | payer OTHER, SELFPAY ==
[2024-12-06 19:43] VITALS: BP 121/79; PULSE 101; O2SAT 100
[2024-12-06 19:53] VITALS: BP 121/79; PULSE 104; RESP 16; TEMP 36.9; O2SAT 100; BMI 25.7
[2024-12-06 20:00] VITALS: BP 116/77; PULSE 102; O2SAT 97
--- NOTE | 2024-12-06 20:16 | ED.NEUROSD ---
HPI - Neuro Symptoms/Deficit General Chief Complaint: Neuro Symptoms/Deficit Stated Complaint: Fever, headache Time Seen by Provider: 12/06/24 19:43 Source: patient Mode of arrival: Ambulatory History of Present Illness HPI Narrative: 24-year-old female past medical history of anxiety depression comes into the ED from home for evaluation multiple complaints, states that over the past several weeks she has been having difficulty remembering things, has been stating that intermittently will have ?blackout episodes states that she has seen her primary care doctor for this and believes that she might be having seizures has been referred for an MRI and neuro consult, however she states that yesterday she had an episode of ?catatonia states it lasted for a proximally 1.5 minutes, she states that she does remember this, she states that he is also developing a headache but denies any visual trauma, states that she did notice that she had a temperature today, states it was 101.3F, patient states that she did take a leave at 3:00 p.m., patient not febrile here, no meningeal signs, patient is well-appearing nontoxic no focal deficits. NIH of 0 she denies any other symptoms such as chest pain shortness breath nausea vomiting abdominal pain or any other GI/ symptoms time. Related Data Allergies Allergy/AdvReac Type Severity Reaction Status Date / Time cetirizine (From ZYRTEC) Allergy Mild Verified 12/06/24 19:53 diphenhydramine (From AdvReac Agitated Verified 12/06/24 19:53 Benadryl) Review of Systems Review of Systems Narrative: General: Positive fever, denies chills, weight loss HEENT: Denies headache, eye drainage, eye irritation, head trauma, sore throat, voice change Cardiovascular: Denies any chest pain, palpitations, tachycardia Respiratory: Denies any shortness of breath, cough, wheeze, stridor GI/: Denies any abdominal pain, nausea, vomiting, diarrhea, bright red blood per rectum, melanotic stools, urinary frequency, urinary retention, dysuria, hematuria MSK: Denies any joint pain, muscle pains, swelling Skin: Denies any rashes, lesions, discoloration Neuro: Positive headache, confusion denies lightheadedness, dizziness, fainting, weakness Psych: Denies SI/HI Patient History Social History (Reviewed 04/23/22 @ 05:59 by DAREN Obrien Smoking Status: Current every day smoker Smoking Status: Current every day smoker tobacco type: vaping alcohol intake frequency: holidays/special occasions only Exam Narrative Exam Narrative: General: Cooperative, well-developed, not in acute distress HEENT: Normocephalic, atraumatic, PERRLA, normal sclera, eyelids normal Neck: Negative Kernig sign, Active full range of motion, atraumatic Chest: Normal to inspection, negative crepitus, no overlying erythema ecchymosis Respiratory: Normal respiratory effort, not in acute respiratory distress, clear to auscultation bilaterally negative cough, wheeze, tachypnea, rhonchi, rales Cardiology: Regular rate rhythm negative gallop, murmur, rubs GI/: No tenderness to palpation, soft, non rigid, normal to inspection, exam deferred MSK: Full active range of motion in all 4 extremities, atraumatic, no tenderness to palpation of any bony prominences Skin: No rashes or lesions noted Neuro: NIH of 0 no focal deficits Alert awake oriented x3, moves all 4 extremities spontaneously, cranial nerves intact, able to answer all questions appropriately follows commands appropriately Psych: Cooperative, negative suicidal or homicidal ideations Initial Vital Signs Initial Vital Signs: Vital Signs Pulse Rate 101 H 12/06/24 19:43 Blood Pressure 121/79 12/06/24 19:43 Pulse Oximetry 100 12/06/24 19:43 Course Orders Ordered: ED Orders 12/06/24 20:18 CT head/brain wo con Stat CXR [XR chest 1V] Stat EKG-12 Lead Stat 12/06/24 20:31 CBC Auto Diff [Complete Blood Count AUTO DIFF] Stat CMP [Comprehensive Metabolic Panel] Stat Lipase Stat MAG [Magnesium] Stat NT-proBNP (BNP-Adult 18+) Stat PT [Prothrombin Time INR] Stat PTT Partial Thromboplastin Jeff Stat Respiratory Panel (Film Array) Stat Troponin & CK Cardiac Panel Stat Vital Signs Vital signs: Vital Signs - 8 hr 12/06/24 19:43 12/06/24 19:43 12/06/24 19:53 Temperature 98.5 F Pulse Rate 101 H 104 H Respiratory Rate 16 Blood Pressure 121/79 121/79 Pulse Oximetry 100 100 Oxygen Delivery Method Room Air 12/06/24 20:00 12/06/24 20:00 Temperature Pulse Rate 102 H Respiratory Rate Blood Pressure 116/77 Pulse Oximetry 97 Oxygen Delivery Method MDM - Neuro Symptoms/Deficit Differential Diagnosis Differential diagnosis: Likely other (CVA, electrolyte abnormality, COVID, flu, ACS) Lab Data 12/06/24 20:31 12/06/24 20:31 Labs: Lab Results 12/06/24 Range/Units 20:31 WBC 11.3 H (4.5-11.0) X10^3/uL RBC 4.35 (4.0-5.2) X10^6/uL Hgb 13.1 (12.0-16.0) g/dL Hct 38.6 (36-46) % MCV 88.8 (80-100) fL MCH 30.2 (26-34) PG MCHC 34.0 (30-36) % RDW 13.5 (11.6-14.8) % Plt Count 219 (150-400) X10^3/uL Neut % (Auto) 72.3 (50-75) % Lymph % (Auto) 17.4 L (25-40) % [place] % (Auto) 8.6 (3-14) % Eos % (Auto) 1.2 L (2-4) % Baso % (Auto) 0.5 (0-2) % Neut # (Auto) 8200 H (0637-1813) /uL Lymph # (Auto) 2000 (1007-2605) /uL [place] # (Auto) 1000 H (0-900) /uL Eos # (Auto) 100 (0-450) /uL Baso # (Auto) 100 (0-100) /uL PT 10.8 (9.4-12.5) SECONDS INR 1.0 (0.9-1.3) APTT 30 (25.1-36.5) SECONDS Sodium 137 (137-145) mmol/L Potassium 4.1 (3.4-5.1) mmol/L Chloride 102 (98-107) mmol/L Carbon Dioxide 25 (22-32) mmol/L BUN 12 (7-17) mg/dL Creatinine 0.92 (0.52-1.04) mg/dL Estimated GFR > 60 (>60) mL/min BUN/Creatinine Ratio 13.0 (6-22) Glucose 96 (70-99) mg/dL Calcium 9.5 (8.4-10.2) mg/dL Magnesium 1.9 (1.6-2.3) mg/dL Total Bilirubin 1.0 (0.2-1.3) mg/dL AST 37 H (14-36) IU/L ALT 17 (<35) IU/L Alkaline Phosphatase 63 (38-126) U/L Total Creatine Kinase 59 (30-135) U/L Troponin I < 0.012 (0.01-0.034) ng/mL NT-Pro-B Natriuret Pep < 20 (<125) pg/mL Total Protein 8.1 (6.3-8.2) g/dL Albumin 4.7 (3.5-5.0) g/dL Globulin 3.4 (1.7-4.1) g/dL Albumin/Globulin Ratio 1.4 (1.0-2.8) Lipase 89 (23-300) U/L Chlamy pneumoniae PCR Not detected (Not Detect) Adenovirus (PCR) Not detected (Not Detect) B. pertussis DNA (PCR) Not detected (Not Detect) B.parapertussis DNA PCR Not detected (Not Detecte) Coronavirus OC43 (PCR) Not detected (Not Detect) Coronavirus HKU1 (PCR) Not detected (Not Detect) Coronavirus 229E (PCR) Not detected (Not Detect) SARS-CoV-2 (PCR) Not detected (Not Detecte) Coronavirus NL63 (PCR) Not detected (Not Detect) Human Metapneumovir PCR Not detected (Not Detect) Influenza Type A (PCR) Not detected (Not Detect) Influenza Type B (PCR) Not detected (Not Detect) M. pneumoniae (PCR) Not detected (Not Detect) Parainfluenza 1 (PCR) Not detected (Not Detect) Parainfluenza 2 (PCR) Not detected (Not Detect) Parainfluenza 3 (PCR) Not detected (Not Detect) Parainfluenza 4 (PCR) Not detected (Not Detect) RSV (PCR) Not detected (Not Detect) Entero/Rhino (PCR) Not detected (Not Detect) Imaging Data CT scan - head: Radiologist's Impression: [address] [address] [address] Scan Report Signed Patient: Rosie Currie MR#: [id number] : 2000 Acct:[id number] Age/Sex: 24 / F Date of Service: 12/06/24 Loc: ED Accession Number: [id number] Procedure: CT head/brain wo con Ordering Provider: Chema Jimenez D.O. PROCEDURE: CT HEAD/BRAIN WO CON INDICATIONS: ams TECHNIQUE: Noncontrast 4.5 mm thick angled axial sections acquired from the foramen magnum to the vertex, with coronal and sagittal reformats. For radiation dose reduction, the following was used: automated exposure control, adjustment of mA and/or kV according to patient size. COMPARISON: [facility], CT, CT HEAD WITHOUT CONTRAST, 11/25/2024, 18:12. FINDINGS: Image quality: Diagnostic. CSF spaces: Basal cisterns are patent. No extra-axial fluid collections. Ventricles are normal in size and shape. Brain: No midline shift. No intracranial mass effect or hemorrhage. Briceño-white matter interface is normal. Skull and face: Calvarium and visualized facial bones are intact, without suspicious lesions. Sinuses: Visualized sinuses and mastoids are clear. IMPRESSION: No acute intracranial pathology. Chest x-ray: Radiologist's Impression: [place] [address] XRay Report Signed Patient: Rosie Currie MR#: [id number] : 2000 Acct:[id number] Age/Sex: 24 / F Date of Service: 12/06/24 Loc: ED Accession Number: [id number] Procedure: XR chest 1V Ordering Provider: Chema Jimenez D.O. PROCEDURE: XR CHEST 1V INDICATIONS: fever TECHNIQUE: One view of the chest was acquired. COMPARISON: None. FINDINGS: Surgical changes and devices: None. Lungs and pleura: Lungs are clear. No pleural effusions or pneumothorax. Mediastinum: Mediastinal contours appear normal. Heart size is normal. Bones and chest wall: No suspicious bony lesions. Overlying soft tissues appear unremarkable. IMPRESSION: No acute pulmonary process. ECG Data Interpretation: EKG interpreted ED physician sinus 84 beats per minute QTC 437 normal axis no STEMI MDM Narrative Medical decision making narrative: 24-year-old female past medical history of anxiety depression comes into the ED from home for evaluation multiple complaints, states that over the past several weeks she has been having difficulty remembering things, has been stating that intermittently will have ?blackout episodes states that she has seen her primary care doctor for this and believes that she might be having seizures has been referred for an MRI and neuro consult, however she states that yesterday she had an episode of ?catatonia states it lasted for a proximally 1.5 minutes, she states that she does remember this, she states that he is also developing a headache but denies any visual trauma, states that she did notice that she had a temperature today, states it was 101.3F, patient states that she did take a leave at 3:00 p.m., patient not febrile here, no meningeal signs, patient is well-appearing nontoxic no focal deficits. NIH of 0 she denies any other symptoms such as chest pain shortness breath nausea vomiting abdominal pain or any other GI/ symptoms time. Patient had lab work imaging EKG performed here. CT scan of the head without any acute findings, chest x-ray without any acute cardiopulmonary abnormality, EKG nonischemic in nature, patient with only a mildly elevated leukocytosis of 11.3, but no signs of infection, Chem panel unremarkable, troponin negative, respiratory panel negative, patient is well-appearing nontoxic NIH of 0 no focal deficits, she was instructed to follow up with her scheduled appointments with her Neurology and PCP, she verbalized understanding of this and agrees to being discharged home with outpatient follow up Discharge Plan Departure Patient Disposition: Home Clinical Impression: Brain fog Activity Restrictions/Additional Instructions: Please follow up with your PCP and neurologist for your scheduled appointments Please read the discharge instructions sheet carefully and bring all papers to all doctor follow-up visits, as it may contain information that your doctor may want to see. Disease processes change and evolve, if your symptoms worsen or if you develop any new symptoms that are concerning to you please return for evaluation. Your evaluation today does not show any evidence of any life-threatening/serious illnesses requiring admission to the hospital or surgery. Please follow-up with your doctor for re-evaluation in approximately 1 day. Seek immediate medical attention for any worrisome symptoms. *If you do not have a primary care provider please contact the [facility] Resource line at [phone]. They will ask some questions about your medical history and help get you set up with a doctor in the community. Stand Alone Forms: Patient Portal/API
--- NOTE | 2024-12-06 20:18 | DI.RAD.S_ITS ---
PROCEDURE: XR CHEST 1V INDICATIONS: fever TECHNIQUE: One view of the chest was acquired. COMPARISON: None. FINDINGS: Surgical changes and devices: None. Lungs and pleura: Lungs are clear. No pleural effusions or pneumothorax. Mediastinum: Mediastinal contours appear normal. Heart size is normal. Bones and chest wall: No suspicious bony lesions. Overlying soft tissues appear unremarkable. IMPRESSION: No acute pulmonary process. Dictated by: Daly Fitzpatrick M.D. on 12/06/2024 at 20:40 Approved by: Daly Fitzpatrick M.D. on 12/06/2024 at 20:40
--- NOTE | 2024-12-06 20:18 | DI.CT.S_ITS ---
PROCEDURE: CT HEAD/BRAIN WO CON INDICATIONS: ams TECHNIQUE: Noncontrast 4.5 mm thick angled axial sections acquired from the foramen magnum to the vertex, with coronal and sagittal reformats. For radiation dose reduction, the following was used: automated exposure control, adjustment of mA and/or kV according to patient size. COMPARISON: [facility], CT, CT HEAD WITHOUT CONTRAST, 11/25/2024, 18:12. FINDINGS: Image quality: Diagnostic. CSF spaces: Basal cisterns are patent. No extra-axial fluid collections. Ventricles are normal in size and shape. Brain: No midline shift. No intracranial mass effect or hemorrhage. Briceño- white matter interface is normal. Skull and face: Calvarium and visualized facial bones are intact, without suspicious lesions. Sinuses: Visualized sinuses and mastoids are clear. IMPRESSION: No acute intracranial pathology. Dictated by: Daly Fitzpatrick M.D. on 12/06/2024 at 20:39 Approved by: Daly Fitzpatrick M.D. on 12/06/2024 at 20:40
[2024-12-06 20:47] LABS: Add Manual Diff / Slide Review NO; Hematocrit 38.6 % (36-46); Hemoglobin 13.1 g/dL (12.0-16.0); Lymphocytes Absolute Auto 2000 /uL (1100-4500); Mean Corpuscular HGB Conc 34.0 % (30-36); Mean Corpuscular Hemoglobin 30.2 PG (26-34); Mean Corpuscular Volume 88.8 fL (80-100); Platelet Count 219 X10^3/uL (150-400)
--- NOTE | 2024-12-06 20:47 | EKG_ITS ---
[address] [address] Test Date: 2024-12-06 Pat Name: Rosie Currie Department: [facility] Room: Gender: Female Cvicu Rn: ESTEE : 2000 Requested By: Order Number: [id number] Reading MD: Rashaun Cho MD Measurements Intervals [place] Rate: 84 P: 62 MI: 132 QRS: 52 QRSD: 86 T: 48 QT: 370 QTc: 437 Interpretive Statements Normal sinus rhythm Electronically Signed On 12-07-2024 7:32:34 PDT by Rashaun Cho MD
[2024-12-06 20:56] LABS: INR 1.0 (0.9-1.3); Prothrombin Time 10.8 SECONDS (9.4-12.5)
[2024-12-06 20:58] LABS: PTT Partial Thromboplastin Tim 30 SECONDS (25.1-36.5)
[2024-12-06 21:08] LABS: Alanine Aminotransferase 17 IU/L (<35); Albumin 4.7 g/dL (3.5-5.0); Albumin Globulin Ratio 1.4 (1.0-2.8); Alkaline Phosphatase 63 U/L (38-126); Blood Urea Nitrogen 12 mg/dL (7-17); Calcium 9.5 mg/dL (8.4-10.2); Carbon Dioxide 25 mmol/L (22-32); Chloride 102 mmol/L (98-107); Creatine Kinase 59 U/L (30-135); Estimated Glomerular Filt Rate > 60 mL/min (>60); Globulin 3.4 g/dL (1.7-4.1); Glucose 96 mg/dL (70-99); HEMOLYSIS 18 (0-50); Lipase 89 U/L (23-300); Magnesium 1.9 mg/dL (1.6-2.3); Potassium 4.1 mmol/L (3.4-5.1); Sodium 137 mmol/L (137-145); Total Protein 8.1 g/dL (6.3-8.2)
--- NOTE | 2024-12-06 21:16 | PC.NURSE ---
pt states shes not having s/sx right now but has been having intermittent episodes of numbness and tingling and tunnel vision like symptoms along with a runny nose and draining feel or sensation during the episodes. She has a headache and has history of migraines but states this is different. She denies, SOB, Chest pain. diarrhea, N,V. No chills but has been having fevers in the last day.
[2024-12-06 21:20] LABS: NT-proBNP (BNP-Adult 18+) < 20 pg/mL (<125); Troponin I < 0.012 ng/mL (0.01-0.034)
[2024-12-06 21:36] LABS: Coronavirus NL 63 Not Detected (Not Detect); SARS- CoV-2 Not Detected (Not Detecte)
== END 2024-12-06 22:19 | disposition home or self-care (01) ==
PROVIDERS: Emergency Provider Student in an Organized Health Care Education/Training Program; Family Provider Pediatrics
DX: R41.89 Other symptoms and signs involving cognitive functions and awareness (principal); R51.9 Headache, unspecified; R50.9 Fever, unspecified; R29.700 NIHSS score 0
CPT/HCPCS: 36415; 70450; 71045; 80053; 82550; 83690; 83735; 83880; 84484; 85025; 85610; 85730; 87633; 93005; 93010; 99283; 99284

== ENCOUNTER 2025-03-05 13:44 | Emergency (ER) | payer OTHER, SELFPAY ==
[2025-03-05] VITALS (10 sets, daily range): BP systolic 116–169; BP diastolic 73–89; PULSE 74–119; RESP 18; TEMP 36.9–37.4; O2SAT 94–100; BMI 24.3
--- NOTE | 2025-03-05 15:40 | ED_ITS ---
HPI - Weakness General Chief complaint: Weakness Stated complaint: Full body pain Time Seen by Provider: 03/05/25 15:40 Source: patient Mode of arrival: Ambulatory History of Present Illness HPI Narrative: 24-year-old female patient with a history of depression and previous suicidal attempt who presents with body aches and generalized weakness that has been waxing and waning since October of this year. She was seen at [facility] and had an MRI which shows suspicious for MS. She eventually had another MRI and lumbar puncture with CSF analysis at the [facility] on 02/24/2025 which was negative for MS. She has been seen by Neurology in [place] but then switched to neurology services at the [facility]. 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 She says there is a plan for some type of autoimmune workup but they can not see her until April. She comes in now because yesterday she was feeling off-balance, shaky and unsteady it started to have thin watery discharge from her nose off and on which is about like water. She reports that she has had fevers up to 102 off and on all during the months of this course of symptoms. They have not found any infectious disease diagnosis and she has not had any antibiotics. She is tearful and very frustrated with no answer to her symptoms. She was seen yesterday at [facility] and they sent the nasal fluid off for a test to see if it is CSF but she was told that will not come back for several days. Related Data Allergies Allergy/AdvReac Type Severity Reaction Status Date / Time cetirizine (From ZYRTEC) Allergy Mild Verified 12/06/24 19:53 diphenhydramine (From AdvReac Agitated Verified 12/06/24 19:53 Benadryl) Review of Systems Review of Systems ROS Unobtainable: All systems reviewed & are unremarkable except as noted in HPI and below Constitutional Constitutional: Reports as per HPI Musculoskeletal Musculoskeletal: Reports as per HPI Neurologic Neurologic: Reports as per HPI Patient History tobacco type: vaping alcohol intake frequency: holidays/special occasions only Exam Narrative Exam Narrative: General: Alert and conversant. [id number] distress. Anxious and tearful. Appears well nourished and well hydrated Craniofacial: No evidence of trauma. Nontender and no swelling. Eyes: PERRLA EOMI conjunctiva clear Lungs: Clear to auscultation with good air movement. No wheezing, rales or rhonchi. No respiratory distress Cardiac: Regular rate and rhythm with no appreciable murmur or gallop Abdomen: Soft, nontender with no distention or masses. Normal bowel sounds. No rebound or guarding Musculoskeletal: Exam of the extremities, axial spine and ribcage reveals no deformity, bony tenderness or swelling. Range of motion intact Neuro: Alert and oriented. Cranial nerves, motor, sensory and cerebellar all grossly intact. No focal deficit Skin: Warm and normal color. No rashes Psychological: Tearful. No evidence of delusion or psychosis. Normal mood. Initial Vital Signs Initial Vital Signs: Vital Signs Temperature 99.3 F 03/05/25 14:02 Pulse Rate 102 H 03/05/25 14:02 Respiratory Rate 18 03/05/25 14:02 Blood Pressure 133/88 03/05/25 14:02 Pulse Oximetry 100 03/05/25 14:02 Oxygen Delivery Method Room Air 03/05/25 14:02 Course Orders Ordered: ED Orders 03/05/25 16:50 CBC Auto Diff [Complete Blood Count AUTO DIFF] Stat CMP [Comprehensive Metabolic Panel] Stat MAG [Magnesium] Stat Discontinued Medications Sodium Chloride (Normal Saline 0.9%) 1,000 mls @ 1,000 mls/hr IV BOLUS ONE Stop: 03/05/25 17:17 Last Infusion: 03/05/25 17:58 Dose: Infused Documented By: Admin: 03/05/25 16:51 Dose: 1,000 mls/hr Documented By: CONRAD Vital Signs Vital signs: Vital Signs - 8 hr 03/05/25 15:51 03/05/25 16:00 03/05/25 16:17 Temperature Pulse Rate 117 H 119 H Blood Pressure 116/76 Pulse Oximetry 94 98 Oxygen Delivery Method Room Air 03/05/25 16:17 03/05/25 17:17 03/05/25 17:18 Temperature Pulse Rate 100 H 100 H Blood Pressure 169/89 H Pulse Oximetry 99 99 Oxygen Delivery Method Room Air 03/05/25 17:18 03/05/25 17:30 03/05/25 17:34 Temperature Pulse Rate 82 Blood Pressure 118/73 122/74 Pulse Oximetry 99 Oxygen Delivery Method 03/05/25 17:34 03/05/25 18:30 03/05/25 19:00 Temperature 98.5 F Pulse Rate 86 74 Blood Pressure Pulse Oximetry 98 98 Oxygen Delivery Method Room Air MDM - Weakness Lab Data Attestation: I reviewed the patient's lab results. Lab results narrative: CBC and CMP essentially unremarkable. 03/05/25 16:50 03/05/25 16:50 Labs: Lab Results 03/05/25 Range/Units 16:50 WBC 6.9 (4.5-11.0) X10^3/uL RBC 4.70 (4.0-5.2) X10^6/uL Hgb 14.0 (12.0-16.0) g/dL Hct 40.6 (36-46) % MCV 86.4 (80-100) fL MCH 29.9 (26-34) PG MCHC 34.6 (30-36) % RDW 12.7 (11.6-14.8) % Plt Count 208 (150-400) X10^3/uL Neut % (Auto) 66.3 (50-75) % Lymph % (Auto) 24.2 L (25-40) % [place] % (Auto) 8.2 (3-14) % Eos % (Auto) 1.0 L (2-4) % Baso % (Auto) 0.3 (0-2) % Neut # (Auto) 4600 (0700-2617) /uL Lymph # (Auto) 1700 (6627-7565) /uL [place] # (Auto) 600 (0-900) /uL Eos # (Auto) 100 (0-450) /uL Baso # (Auto) 0 (0-100) /uL Sodium 138 (137-145) mmol/L Potassium 4.3 (3.4-5.1) mmol/L Chloride 102 (98-107) mmol/L Carbon Dioxide 23 (22-32) mmol/L BUN 9 (7-17) mg/dL Creatinine 0.86 (0.52-1.04) mg/dL Estimated GFR > 60 (>60) mL/min BUN/Creatinine Ratio 10.5 (6-22) Glucose 87 (70-99) mg/dL Calcium 10.0 (8.4-10.2) mg/dL Magnesium 1.8 (1.6-2.3) mg/dL Total Bilirubin 1.3 (0.2-1.3) mg/dL AST 38 H (14-36) IU/L ALT 22 (<35) IU/L Alkaline Phosphatase 58 (38-126) U/L Total Protein 9.0 H (6.3-8.2) g/dL Albumin 5.2 H (3.5-5.0) g/dL Globulin 3.8 (1.7-4.1) g/dL Albumin/Globulin Ratio 1.4 (1.0-2.8) MDM Narrative Medical decision making narrative: Patient has exacerbation of her chronic 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 She has underlying emotional and psychological issues exacerbating her symptoms including anxiety. There are no new symptoms necessitating further neurological workup. Plan is for her to monitor symptoms and contact her neurology team tomorrow morning to discuss close follow up. Return to the ER if worse. Discharge Plan Departure Patient Disposition: Home Clinical Impression: Generalized weakness, Myalgic encephalomyelitis, Rhinorrhea Instructions: DI for Muscle Weakness Activity Restrictions/Additional Instructions: Plan: Hydration, rest and supportive care and continue current medications. Contact your neurology team tomorrow morning to arrange follow up as soon as possible to discuss symptoms and management. Return to the ER if worse Also, follow up on lab results from your rhinorrhea/nasal discharge with [facility] Referrals: Yumiko Mcghee ARNP [Primary Care Provider, Family Practice] Stand Alone Forms: Patient Portal/API
[2025-03-05] MEDS: SODIUM CHLORIDE 0.9% 1,000 ML 1000 ML IV (16:51)
[2025-03-05 16:59] LABS: Add Manual Diff / Slide Review NO; Hematocrit 40.6 % (36-46); Hemoglobin 14.0 g/dL (12.0-16.0); Lymphocytes Absolute Auto 1700 /uL (1100-4500); Mean Corpuscular HGB Conc 34.6 % (30-36); Mean Corpuscular Hemoglobin 29.9 PG (26-34); Mean Corpuscular Volume 86.4 fL (80-100); Platelet Count 208 X10^3/uL (150-400)
[2025-03-05 17:15] LABS: Alanine Aminotransferase 22 IU/L (<35); Albumin 5.2 g/dL (3.5-5.0); Albumin Globulin Ratio 1.4 (1.0-2.8); Alkaline Phosphatase 58 U/L (38-126); Blood Urea Nitrogen 9 mg/dL (7-17); Calcium 10.0 mg/dL (8.4-10.2); Carbon Dioxide 23 mmol/L (22-32); Chloride 102 mmol/L (98-107); Estimated Glomerular Filt Rate > 60 mL/min (>60); Globulin 3.8 g/dL (1.7-4.1); Glucose 87 mg/dL (70-99); HEMOLYSIS < 15 (0-50); Magnesium 1.8 mg/dL (1.6-2.3); Potassium 4.3 mmol/L (3.4-5.1); Sodium 138 mmol/L (137-145); Total Protein 9.0 g/dL (6.3-8.2)
== END 2025-03-05 19:21 | disposition home or self-care (01) ==
PROVIDERS: Emergency Provider Emergency Medicine; Family Provider Pediatrics; PCP Nurse Practitioner Family
DX: R53.1 Weakness (principal); G93.32 Myalgic encephalomyelitis/chronic fatigue syndrome; J34.89 Other specified disorders of nose and nasal sinuses
CPT/HCPCS: 80053; 83735; 85025; 96360; 99283; 99284; J7030